=== PATIENT | female | born 1960 | race Caucasian/White ===

== ENCOUNTER 2020-01-29 05:32 | Emergency (ER) | payer MEDICAID, SELFPAY ==
[~2020-01-29] VITALS: Ht 182.9 cm; Wt 60.0 kg
[2020-01-29 05:35] VITALS: BP 110/73
[2020-01-29] MEDS ORDERED: DIPH,PERTUSS(ACELL),TET VAC/PF 0.5 ML IM-VACC ONE ×2 (05:57→06:00)
[2020-01-29] MEDS ORDERED: LIDOCAINE-MPF 1%, 5ML ONE (05:57)
[2020-01-29] MEDS ORDERED: SULFAMETH./TRIMETHOPRIM DS 800MG/160MG TABLET ONE (05:58)
[2020-01-29] MEDS ORDERED: CEPHALEXIN 500 MG CAPSULE ONE (05:58)
[2020-01-29] MEDS ORDERED: CEPHALEXIN 500 MG CAPSULE PO ONE (06:00)
[2020-01-29] MEDS ORDERED: SULFAMETH./TRIMETHOPRIM DS 800MG/160MG TABLET PO ONE (06:00)
[2020-01-29] MEDS ORDERED: LIDOCAINE-MPF 1%, 5ML INFIL ONE (06:00)
[2020-01-29] MEDS ORDERED: SERT100T PO (06:09)
[2020-01-29] MEDS ORDERED: ARIP20TA5 PO (06:09)
--- NOTE | 2020-01-29 06:09 | NUR ---
PT SITTING UP ON GURNEY, MONITORS APPLIED, SIDERAIL SUP X2, CALL LIGHT WITHIN REACH. PT MEDICATED PER MAR
--- NOTE | 2020-01-29 06:10 | NUR ---
PA AT PT'S BEDSDIE FOR I&D
--- NOTE | 2020-01-29 06:21 | NUR ---
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
== END 2020-01-29 07:00 | disposition home or self-care (01) ==
LOC: ED 06:39
DX: L02.414 Cutaneous abscess of left upper limb (principal); F17.210 Nicotine dependence, cigarettes, uncomplicated
CPT/HCPCS: 10061; 90471; 90715; 99284